=== PATIENT | female | born 1980 | race Caucasian/White ===

== ENCOUNTER 2020-05-06 12:24 | Emergency (ER) | payer OTHER ==
[~2020-05-06] VITALS: Ht 165.1 cm; Wt 81.7 kg
[2020-05-06 13:55] VITALS: BP 140/79
== END 2020-05-06 13:56 | disposition home or self-care (01) ==
LOC: M.ERS 12:24
DX: S63.602A Unspecified sprain of left thumb, initial encounter (principal); S46.912A Strain of unspecified muscle, fascia and tendon at shoulder and upper arm level, left arm, initial encounter; X50.1XXA Overexertion from prolonged static or awkward postures, initial encounter; Y93.89 Activity, other specified; Y92.69 Other specified industrial and construction area as the place of occurrence of the external cause; Y99.9 Unspecified external cause status

== ENCOUNTER 2020-12-16 19:22 | Emergency (ER) | payer OTHER ==
[~2020-12-16] VITALS: Ht 165.1 cm; Wt 87.1 kg
[2020-12-16 20:15] LABS: ABSOLUTE EOSINOPHILS 0.2 thou/uL (0.0-0.7); ABSOLUTE LYMPHOCYTES 2.5 thou/uL (0.8-5.3); ABSOLUTE MONOCYTES 0.6 thou/uL (0.0-1.2); ABSOLUTE NEUTROPHILS 8.2 thou/uL (1.6-8.1); BASOPHILS 0.4 %; EOSINOPHILS 1.4 %; HEMATOCRIT 37.3 % (37.0-47.0); HEMOGLOBIN 12.7 gm/dL (12.0-15.0); LYMPHOCYTES 21.8 %; MCV 91.2 fL (80.0-100.0); MONOCYTES 5.5 %; MPV 6.3 fl. (7.2-11.1); NUCLEATED RBCS 0 /100WBC; PLATELET COUNT* 427 thou/uL (150-400); POLYS 70.9 %; RBC 4.09 mil/uL (4.20-5.00); WBC 11.6 thou/uL (4.0-11.0)
[2020-12-16 20:33] LABS: CALCIUM 8.4 mg/dL (8.5-10.1); CREATININE 0.7 mg/dL (0.6-1.3); POTASSIUM 3.1 mmol/L (3.5-5.1); PROTIME 10.7 Seconds (9.20-11.50)
[2020-12-16 20:38] LABS: ALBUMIN 3.3 g/dL (3.4-5.0); TOTAL BILIRUBIN 0.4 mg/dL (<0.1-1.0); TOTAL PROTEIN 7.2 g/dL (6.4-8.2)
[2020-12-16 20:49] LABS: MONOTEST (MONOSPOT)* NEGATIVE (Negative)
[2020-12-16 21:30] LABS: URINE BILIRUBIN NEGATIVE (Negative); URINE BLOOD 1+ (Negative); URINE CLARITY CLEAR; URINE COLOR YELLOW; URINE GLUCOSE-RANDOM NEGATIVE (Negative); URINE KETONES NEGATIVE (Negative); URINE LEUKOCYTES-REFLEX NEGATIVE (Negative); URINE NITRITE-REFLEX NEGATIVE (Negative); URINE PROTEIN NEGATIVE (Negative); URINE SPECIFIC GRAVITY 1.025 (1.005-1.030); URINE UROBILINOGEN 0.2 E.U./dl (0.2-1.0)
[2020-12-16 21:37] LABS: BACTERIA-REFLEX >30 Many /HPF (None Seen); CASTS None Seen /LPF (None Seen); CRYSTALS None Seen /LPF (None Seen); MUCUS 4-6 Moderate strn/LPF (None Seen); SQUAMOUS 0-3 Few /LPF (0-3); URINE RBC 3-10 Few /HPF (0-2); URINE WBC-REFLEX 0-5 Rare /HPF (0-5)
[2020-12-16 22:21] LABS: INFLUENZA A ANTIGEN Negative (Negative); INFLUENZA B ANTIGEN Negative (Negative)
[2020-12-16] MEDS ORDERED: MEDROLDOSEPACK PO (23:23)
[2020-12-16] MEDS ORDERED: BACTRIM DS TAB1 EACH PO (23:23)
[2020-12-16] MEDS ORDERED: ULTRAM 50MG TAB50 MG PO (23:23)
[2020-12-16 23:44] VITALS: BP 124/73
--- NOTE | 2020-12-17 13:56 | EKG ---
[place] [address] ELECTROCARDIOGRAM REPORT Name: CLARA CARRILLO Room: [facility]#: [id number] Admission: 12/16/20 Attend Phys: Discharge: 12/16/20 Date of : 82 Date of Service: 12/16/201926 Report #: [id number] THIS REPORT FOR: //name// [facility] ED Test Date: 2020-12-16 Test Time: 19:27:16 Pat Name: CLARA CARRILLO Department: Room: Gender: F [employer]: MD : [id number] Requested By: Trish Martinez Order Number: [id number] MD: Devin Gardner Measurements Intervals [place] Rate: 72 P: 51 MT: 168 QRS: 59 QRSD: 96 T: 60 QT: 393 QTc: 431 Interpretive Statements Sinus rhythm No previous ECG available for comparison Electronically Signed On 12-17-2020 13:56:12 [employer] by Devin Gardner [email or web address] <ELECTRONICALLY SIGNED> By: Devin Gardner MD, [facility] 12/17/20 1356 26 26 Devin Gardner MD, FACC /EPI
== END 2020-12-16 23:45 | disposition home or self-care (01) ==
LOC: M.ERS 19:22
PROVIDERS: Personal Emergency Response Attendant
DX: R07.89 Other chest pain (principal); Z20.828 Contact with and (suspected) exposure to other viral communicable diseases; N39.0 Urinary tract infection, site not specified